=== PATIENT | female | born 1980 | race Caucasian/White ===

== ENCOUNTER 2016-10-11 19:13 | Emergency (ER) | payer OTHER ==
--- NOTE | 2016-10-11 21:30 | ED ORDER SUMMARY ---
..... Patient: MARYANA JEAN-BAPTISTE OrderSheet [facility] VisitID: [id number] [place] [address] 36y, F Registration Date/Time: 10/11/2016 ORDER SHEET Weight: 63.0 kg (stated) Allergies: Demerol, Hdrocodone/APAP, Latex, Robitussin GENERAL ORDERS: Urine Urgent (20:28 10/11/2016 DDavis R.N. per protocol) (Ack 20:28 DDavis R.N.) (20:34 DDavis R.N.) UA-Culture if indicated Urgent (20:28 10/11/2016 DDavis R.N. per protocol) (Ack 20:28 DDavis R.N.) (20:34 DDavis R.N.) CBC w Diff Urgent (20:41 10/11/2016 HBivens A.R.N.P.) (Ack 20:43 CHagerty ER Tail Puller) (21:00 DDavis R.N.) CMP Urgent (20:41 10/11/2016 HBivens A.R.N.P.) (Ack 20:43 CHagerty ER Tail Puller) (21:00 DDavis R.N.) Amylase Urgent (20:41 10/11/2016 HBivens A.R.N.P.) (Ack 20:43 CHagerty ER Tail Puller) (21:00 DDavis R.N.) Lipase Urgent (20:41 10/11/2016 HBivens A.R.N.P.) (Ack 20:43 CHagerty ER Tail Puller) (21:00 DDavis R.N.) MEDICATION ORDERS: K-Dur PO 20 meq (Do not crush or chew, NOW) (21:29 10/11/2016 HBivens A.R.N.P.) (Ack 21:30 DDavis R.N.) (21:41 DDavis R.N.) IV FLUIDS: Toradol IV 30 mg (NOW) (20:41 10/11/2016 HBivens A.R.N.P.) (Ack 20:43 DDavis R.N.) (21:01 DDavis R.N.) IV Saline Lock (20:41 10/11/2016 HBivenalexis Mcgovern.R.N.P.) (Ack 20:43 DDavis R.N.) (21:00 DDavis R.N.) ORDER SHEET NOTES: [Electronically signed by Redd Benavidez R.N. (21:42 10/11/2016)] [Electronically signed by Minnie AlbertsNMargaritaPMargarita (23:15 10/11/2016)] [Electronically locked/signed by Redd Benavidez R.N. (21:42 10/11/2016)]
--- NOTE | 2016-10-11 21:30 | ED NURSING NOTES ---
Clinical Report - Nurses [facility] [address] [place] [address] 10/11/2016 19:16 Patient: [facility]TISTE [id number] TRI[facility] Triage time 19:47. Acuity: LEVEL 3. Chief Complaint: ABDOMINAL PAIN. Alert. No acute distress. --19:54 Sherman Guevara R.N. 19:46 10/11/16. BP: 138/90. HR: 80. RR: 20. O2 saturation: 100%. Temp: 98.8 F. Pain level now 02/04. --19:54 Sherman Guevara R.N. Weight: 63 kg stated. Height/Length: 60 inches Per Patient. BMI: 27.1. --19:52 Sherman Guevara R.N. Medications Aspirin Oral. Topamax Oral. Vitamin D Oral. Vitamins/Minerals Oral. --19:51 Sherman Guevara R.N. Allergies Demerol. Hdrocodone/APAP. Latex. Robitussin. --19:49 Sherman Guevara R.N. History Arrived by private vehicle. Historian: patient. Unaccompanied. This started today. ( loose stool but only one). No nausea, vomiting or diarrhea. Last oral intake by patient was (4 hours ago, a banana). SOCIAL HX: Never smoker. No alcohol use or drug use. FALL RISK ASSESSMENT: Fall risk assessment completed. No fall risk identified. NUTRITIONAL RISK ASSESSMENT: The nutritional risk assessment revealed no deficiencies. FUNCTIONAL ASSESSMENT: Functional assessment: no impairments noted. LEARNING NEEDS ASSESSMENT: The learning needs assessment revealed no barriers. SKIN INTEGRITY ASSESSMENT: Skin integrity risk assessment completed. No skin integrity risk identified. --19:54 Sherman Guevara R.N. Interventions ID band on patient. --19:54 Sherman Guevara R.N. PHYSICAL ASSESSMENT GENERAL / NEURO / PSYCH: Alert. Oriented X 4. Appears in no acute distress. Appears in pain. RESPIRATORY: Respirations not labored. Breath sounds within normal limits. GI / : Abdomen soft and nontender. Bowel sounds within normal limits. SKIN: Skin is warm and dry. --19:55 Sherman Guevara R.N. Ambulatory to room. ( Pt states having upper right abdominal pain since "two hours ago." she states that the pain increases when she leans forward and when she presses on the area. She appears calm and pleasent.). GENERAL / NEURO / PSYCH: Alert. Oriented X 4. Appears in no acute distress. HEENT: Mucous membranes are pink. RESPIRATORY: Respirations not labored. Breath sounds within normal limits. CVS: Normal sinus rhythm noted. Capillary refill less than 2 seconds. GI / : Abdomen soft. Abdominal tenderness in the right upper quadrant. SKIN: Skin is warm and dry. --20:31 Redd Benavidez R.N. NURSING PROGRESS NOTES Patient gowned. Reassurance given. Call light placed in reach. Side rails up x 1. Bed placed in lowest position. --19:55 Sherman Guevara R.N. ( Report received from Sherman Taylor RN). --20:00 Redd Benavidez R.N. ( Urine sample sent to lab). --20:34 Redd Benavidez R.N. 20:55 10/11/2016 Site #1 started via IV antecubital space with an 20g angiocath, with aseptic technique and good blood return; one attempt. Blood drawn: rainbow set. Labeled in the presence of the patient and sent to the lab. Saline lock flushed with 10 mL saline. --21:00 Redd Benavidez R.N. 21:36 10/11/2016 K-DUR (Potassium Chloride Ryann ER) PO Tablets 20 meq given. Allergies verified and confirmed 5 rights. --21:41 Redd Benavidez R.N. 21:37 10/11/2016 Site #1 removed upon discharge. Manual pressure and bandage applied. --21:42 Redd Benavidez R.N. 21:58 10/11/2016 Toradol IVP 30 mg given over 2 minute(s) via site #1. Allergies verified and confirmed 5 rights. IV patency established. IV site checked: no pain, redness, or swelling. IV flushed thoroughly pre- and post-medication administration. IVP given by RN. --21:01 Redd Benavidez R.N. DISPOSITION / DISCHARGE Departure time: 21:40. Condition at departure: stable. No learning barriers present. Discharge instructions provided and reviewed with the patient. Reviewed warnings. Reviewed medication(s) side effects, precautions, dosing and course information. Prescription(s) given to the patient. Treatments reviewed. Reviewed referrals for followup. Patient verbalized understanding. Written instructions provided in Grenadian. The patient was discharged home and accompanied by short haul driver. She left the Emergency Department ambulatory and via private vehicle. Patient driving. --21:41 Redd Benavidez R.N. 21:40 10/11/16. BP: 119/80. HR: 100. RR: 14 (unlabored). O2 saturation: 95% on room air. --21:41 Redd Benavidez R.N. Departure time: 21:42. --21:42 Redd Benavidez R.N. Locked/Released at 10/11/2016 21:42 by Redd Benavidez R.N.
--- NOTE | 2016-10-11 21:30 | ED CLINICAL REPORT ---
Clinical Report - Physicians/Mid Levels [facility] [address] [place] [address] 10/11/2016 19:16 Patient: MARYANA JEAN-BAPTISTE Time Seen: 20:20; initial patient contact, initial documentation, patient care assumed. Arrived- By private vehicle. Historian- patient. HISTORY OF PRESENT ILLNESS Chief Complaint: ABDOMINAL PAIN. 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 It was abrupt in onset and has been constant. At its maximum, severity described as severe. When seen in the E.D., severity described as severe. Modifying factors- (worsened by leaning forward). Not relieved by anything. It is described as "pain" and sharp. No radiation. It is described as located in the right upper quadrant. No nausea, loss of appetite or vomiting. She has had loose stools. This has occurred only once. No additional abdominal pain. No recent travel. Similar symptoms previously: None. Recent medical care: Not recently seen/assessed. REVIEW OF SYSTEMS No constipation, black stools, hematemesis, difficulty with urination or pain with urination. No urinary frequency, bloody stools, fever, chest pain or difficulty breathing. Denies current . All systems otherwise negative, except as recorded above. PAST HISTORY See nurses notes. PAST HISTORY Problems: Vaginitis. UTI - Urinary Tract Infection. Gallstone(s). Back Pain. Lumbar Strain. Hypertension. Lower Extremity Pain. Endometriosis. Bronchitis. Muscle Spasm. Chronic Back Pain. Headache. Nausea. Vaginal Bleeding. Abdominal Pain. Ovarian Cyst. Depression. Additional Surgeries: Appendectomy. Cholecystectomy. Endometriosis. Fatty tumor removed from breast. Tonsillectomy. Uterine ablasion. SOCIAL HISTORY Never smoker. No alcohol use or drug use. No recent travel. Is a local resident. FAMILY HISTORY Negative. ADDITIONAL NOTES The nursing notes have been reviewed with agreement regarding the chief complaint, HPI, ROS, PMH and patient medications and allergies. PHYSICAL EXAM Vital Signs: 10/11/2016 19:46 BP: 138/90. HR: 80. RR: 20. O2 saturation: 100%. Temp: 98.8 F. Have been reviewed as normal and appear to be correct. Appearance: Alert. Oriented X3. No acute distress. Eyes: Pupils equal, round and reactive to light. Eyes normal inspection. Neck: Normal inspection. Neck supple. CVS: Normal heart rate and rhythm. Heart sounds normal. Pulses normal. Respiratory: No respiratory distress. Breath sounds normal. Chest nontender. Abdomen: Soft. Mild tenderness in the right upper quadrant and epigastric area. Positive Basilio's sign. No guarding, rebound tenderness or obturator or psoas sign present. Bowel sounds normal. No organomegaly. No mass. Tenderness present. Back: Normal inspection. Skin: Skin warm and dry. Normal skin color. No rash. Normal skin turgor. Extremities: Extremities exhibit normal ROM. No lower extremity edema. Neuro: Oriented X 3. No motor deficit. No sensory deficit. LABS, X-RAYS, AND EKG Laboratory Tests: UA-Culture if indicated: (SARA: 10/11/2016 20:26) ( [facility] 10/11/2016 20:51) Final results Test Result Flag Units (Reference) URINE COLOR YELLOW URINE APPEARANCE CLEAR URINE GLUCOSE NEGATIVE (NEGATIVE) URINE BILIRUBIN NEGATIVE (NEGATIVE) URINE KETONE NEGATIVE (NEGATIVE) URINE SPECIFIC GRAVITY >= 1.030 (1.010-1.030) URINE PH 5.0 (5.0-8.0) URINE PROTEIN TRACE (NEGATIVE) URINE UROBILINOGEN 0.2 EU/dL (0.2-1.0) URINE NITRITE NEGATIVE (NEGATIVE) URINE BLOOD NEGATIVE (NEGATIVE) URINE LEUK ESTERASE NEGATIVE (NEGATIVE) URINE RBC NONE SEEN rbc/hpf (0-1) URINE WBC 0-1 wbc/hpf (0-1) URINE EPITHELIAL CELLS 1-3 EPI/hpf (0-5) URINE BACTERIA TRACE (<1+) (NONE SEEN) URINE COMMENT CULT NOT INDICATED 1+ MUCUSURINE CULTURES ARE SET-UP BASED ON THE FOLLOWING CRITERIA:POSITIVE NITRITEPOSITIVE LEUKOCYTE ESTERASEGREATER THAN 10 WHITE BLOOD CELLSMODERATE (2+) OR GREATER BACTERIA Urine: (SARA: 10/11/2016 20:26) ( [facility] 10/11/2016 20:42) Final results Test Result Flag Units (Reference) URINE NEGATIVE CBC w Diff: (SARA: 10/11/2016 20:50) ( MsgRcvd 10/11/2016 21:12) Final results Test Result Flag Units (Reference) WHITE BLOOD COUNT 5.8 K/uL (4.5-11.5) RED BLOOD COUNT 4.58 M/uL (4.00-5.20) HEMOGLOBIN 13.3 gm/dL (12.0-16.0) HEMATOCRIT 39.9 % (36.0-46.0) MEAN CELL VOLUME 87 fL (80-100) MEAN CORPUSCULAR HGB 29 pg (26-34) MEAN CORPUSCULAR HGB CONC 34 g/dL (31-37) RED CELL DISTRIBUTION WIDTH 14.3 % (11.6-14.8) PLATELET COUNT 281 K/uL (150-400) NEUTROPHIL % 53.9 % (50-75) LYMPH % 38.0 % (25-40) MONO % 6.1 % (3-14) EOSINOPHIL % 0.6 % (0-4) BASOPHIL % 1.4 % (0-2) CMP: (SARA: 10/11/2016 20:50) ( MsgRcvd 10/11/2016 21:19) Final results Test Result Flag Units (Reference) GLUCOSE 125 H mg/dL (70-110) BUN 15 mg/dL (7-18) CREATININE 0.5 L mg/dL (0.6-1.3) Estimated GFR >60 mL/min Estimated GFR- >60 mL/min Note: Persistent reduction over 3 months in eGFR<60 mL/min/1.73 m2 defines CKD. Patients with eGFR values>=60 mL/min/1.73 m2 may also have CKD if evidence ofpersistent proteinuria. Additional information may be foundat www.kidney.org. SODIUM 139 mmol/L (136-145) POTASSIUM 3.2 L mmol/L (3.5-5.1) CHLORIDE 108 H mmol/L (98-107) CARBON DIOXIDE 26 mmol/L (21-32) CALCIUM 9.2 mg/dL (8.5-10.1) TOTAL PROTEIN 7.7 g/dL (6.4-8.2) ALBUMIN 3.9 g/dL (3.3-5.0) BILIRUBIN, TOTAL 0.4 mg/dL (0.0-1.0) ALKALINE PHOSPHATASE 56 U/L (46-116) AST (SGOT) 18 U/L (15-37) ALT (SGPT) 28 U/L (12-78) LIPASE 168 U/L (73-393) AMYLASE 83 U/L (25-115) . PROGRESS AND PROCEDURES Patient counseled in person regarding the patient's stable condition, test results and diagnosis. 21:24. Differential Diagnosis: I considered gastritis, peptic ulcer disease, gastroesophageal reflux disease, diverticulitis, colon cancer, ulcerative colitis, biliary colic, hepatitis, pancreatitis, common bile duct obstruction, ureterolithiasis, and viral syndrome as a possible cause of abdominal pain in this patient. This is a partial list of diagnoses considered. Above considerations are based on history, physical exam, reassessment and laboratory data. Differential diagnosis was discussed with patient. Disposition: Discharged home in good and improved condition (21:29). Condition: good and stable. CLINICAL IMPRESSION Acute right upper quadrant and epigastric abdominal pain. INSTRUCTIONS Warnings: GENERAL WARNINGS: Return or contact your physician immediately if your condition worsens or changes unexpectedly, if not improving as expected, or if other problems arise. SPECIFICALLY, return if you develop pain in the abdomen, fever, the inability to keep fluids down, blood in vomitus, blood in diarrhea, fainting or lightheadedness. Prescription Medications: Zofran 4 mg: Take 1 orally every six hours as needed for nausea/vomiting. Dispense ten (10). No refills. Substitution is permissible. Pepcid 20 mg tablets: Take 1 orally every 12 hours. Dispense thirty (30). No refills. Substitution is permissible. Ultram 50 mg tablets: take 1-2 orally every 6 hours as needed for pain. Dispense twenty (20). No refills. Substitution is permissible. Follow-up: Follow up with your doctor in about two days as needed. Call for an appointment. Summary of care provided to patient. Understanding of the discharge instructions verbalized by patient. (Electronically signed by Minnie Alberts A.R.N.P. 10/11/2016 23:15)
--- NOTE | 2016-10-11 21:30 | ED NURSING NOTES ---
Clinical Report - Nurses [facility] [address] [place] [place] [address] 10/11/2016 19:16 [facility]: [facility]ISTE [id number] TRI[facility] Triage time 19:47. Acuity: LEVEL 3. Chief Complaint: ABDOMINAL PAIN. Alert. No acute distress. --19:54 Sherman Guevara R.N. 19:46 10/11/16. BP: 138/90. HR: 80. RR: 20. O2 saturation: 100%. Temp: 98.8 F. Pain level now 02/04. --19:54 Sherman Guevara R.N. Weight: 63 kg stated. Height/Length: 60 inches Per Patient. BMI: 27.1. --19:52 Sherman Guevara R.N. Medications Aspirin Oral. Topamax Oral. Vitamin D Oral. Vitamins/Minerals Oral. --19:51 Sherman Guevara R.N. Allergies Demerol. Hdrocodone/APAP. Latex. Robitussin. --19:49 Sherman Guevara R.N. History Arrived by private vehicle. Historian: patient. Unaccompanied. This started today. ( loose stool but only one). No nausea, vomiting or diarrhea. Last oral intake by patient was (4 hours ago, a banana). SOCIAL HX: Never smoker. No alcohol use or drug use. FALL RISK ASSESSMENT: Fall risk assessment completed. No fall risk identified. NUTRITIONAL RISK ASSESSMENT: The nutritional risk assessment revealed no deficiencies. FUNCTIONAL ASSESSMENT: Functional assessment: no impairments noted. LEARNING NEEDS ASSESSMENT: The learning needs assessment revealed no barriers. SKIN INTEGRITY ASSESSMENT: Skin integrity risk assessment completed. No skin integrity risk identified. --19:54 Sherman Guevara R.N. Interventions ID band on patient. --19:54 Sherman Guevara R.N. PHYSICAL ASSESSMENT GENERAL / NEURO / PSYCH: Alert. Oriented X 4. Appears in no acute distress. Appears in pain. RESPIRATORY: Respirations not labored. Breath sounds within normal limits. GI / : Abdomen soft and nontender. Bowel sounds within normal limits. SKIN: Skin is warm and dry. --19:55 Sherman Guevara R.N. Ambulatory to room. ( Pt states having upper right abdominal pain since "two hours ago." she states that the pain increases when she leans forward and when she presses on the area. She appears calm and pleasent.). GENERAL / NEURO / PSYCH: Alert. Oriented X 4. Appears in no acute distress. HEENT: Mucous membranes are pink. RESPIRATORY: Respirations not labored. Breath sounds within normal limits. CVS: Normal sinus rhythm noted. Capillary refill less than 2 seconds. GI / : Abdomen soft. Abdominal tenderness in the right upper quadrant. SKIN: Skin is warm and dry. --20:31 Redd Benavidez R.N. NURSING PROGRESS NOTES Patient gowned. Reassurance given. Call light placed in reach. Side rails up x 1. Bed placed in lowest position. --19:55 Sherman Guevara R.N. ( Report received from Sherman Taylor RN). --20:00 Redd Benavidez R.N. ( Urine sample sent to lab). --20:34 Redd Benavidez R.N. 20:55 10/11/2016 Site #1 started via IV antecubital space with an 20g angiocath, with aseptic technique and good blood return; one attempt. Blood drawn: rainbow set. Labeled in the presence of the patient and sent to the lab. Saline lock flushed with 10 mL saline. --21:00 Redd Benavidez R.N. 21:36 10/11/2016 K-DUR (Potassium Chloride Ryann ER) PO Tablets 20 meq given. Allergies verified and confirmed 5 rights. --21:41 Redd Benavidez R.N. 21:37 10/11/2016 Site #1 removed upon discharge. Manual pressure and bandage applied. --21:42 Redd Benavidez R.N. 21:58 10/11/2016 Toradol IVP 30 mg given over 2 minute(s) via site #1. Allergies verified and confirmed 5 rights. IV patency established. IV site checked: no pain, redness, or swelling. IV flushed thoroughly pre- and post-medication administration. IVP given by RN. --21:01 Redd Benavidez R.N. DISPOSITION / DISCHARGE Departure time: 21:40. Condition at departure: stable. No learning barriers present. Discharge instructions provided and reviewed with the patient. Reviewed warnings. Reviewed medication(s) side effects, precautions, dosing and course information. Prescription(s) given to the patient. Treatments reviewed. Reviewed referrals for followup. Patient verbalized understanding. Written instructions provided in Nicaraguan. The patient was discharged home and accompanied by sustainment logistics analyst. She left the Emergency Department ambulatory and via private vehicle. Patient driving. --21:41 Redd Benavidez R.N. 21:40 10/11/16. BP: 119/80. HR: 100. RR: 14 (unlabored). O2 saturation: 95% on room air. --21:41 Redd Benavidez R.N. Departure time: 21:42. --21:42 Redd Benavidez R.N. Locked/Released at 10/11/2016 21:42 by Redd Benavidez R.N.
--- NOTE | 2016-10-11 21:30 | ED ORDER SUMMARY ---
..... Patient: MARYANA JEAN-BAPTISTE OrderSheet [facility] VisitID: [id number] [place] [address] 36y, F Registration Date/Time: 10/11/2016 ORDER SHEET Weight: 63.0 kg (stated) Allergies: Demerol, Hdrocodone/APAP, Latex, Robitussin GENERAL ORDERS: Urine Urgent (20:28 10/11/2016 DDavis R.N. per protocol) (Ack 20:28 DDavis R.N.) (20:34 DDavis R.N.) UA-Culture if indicated Urgent (20:28 10/11/2016 DDavis R.N. per protocol) (Ack 20:28 DDavis R.N.) (20:34 DDavis R.N.) CBC w Diff Urgent (20:41 10/11/2016 HBivens A.R.N.P.) (Ack 20:43 CHagerty ER Padder) (21:00 DDavis R.N.) CMP Urgent (20:41 10/11/2016 HBivens A.R.N.P.) (Ack 20:43 CHagerty ER Padder) (21:00 DDavis R.N.) Amylase Urgent (20:41 10/11/2016 HBivens A.R.N.P.) (Ack 20:43 CHagerty ER Padder) (21:00 DDavis R.N.) Lipase Urgent (20:41 10/11/2016 HBivens A.R.N.P.) (Ack 20:43 CHagerty ER Padder) (21:00 DDavis R.N.) MEDICATION ORDERS: K-Dur PO 20 meq (Do not crush or chew, NOW) (21:29 10/11/2016 HBivens A.R.N.P.) (Ack 21:30 DDavis R.N.) (21:41 DDavis R.N.) IV FLUIDS: Toradol IV 30 mg (NOW) (20:41 10/11/2016 HBivens A.R.N.P.) (Ack 20:43 DDavis R.N.) (21:01 DDavis R.N.) IV Saline Lock (20:41 10/11/2016 HBivenalexis Mcgovern.R.N.P.) (Ack 20:43 DDavis R.N.) (21:00 DDavis R.N.) ORDER SHEET NOTES: [Electronically signed by Redd Benavidez R.N. (21:42 10/11/2016)] [Electronically signed by Minnie AlbertsNMargaritaPMargarita (23:15 10/11/2016)] [Electronically locked/signed by Redd Benavidez R.N. (21:42 10/11/2016)]
--- NOTE | 2016-10-11 23:16 | ED MAR SUMMARY ---
..... Medication Administration Record [facility] [address] [place] [address] Patient: MARYANA JEAN-BAPTISTE Visit ID: [id number] 36y, F Weight: 63.0 kg Height/Length: 60 in BMI: 27.1 ALLERGIES: Demerol, Hdrocodone/APAP, Latex, Robitussin Given 21:36 10/11/2016 Redd Benavidez R.N. Medication Administered: K-DUR [PO] (POTASSIUM CHLORIDE NANCY ER), Dose: 20 meq Tablets PO. Medication Ordered: K-Dur PO 20 meq (Do not crush or chew, NOW). Given 21:58 10/11/2016 Redd Benavidez R.N. Medication Administered: TORADOL [IVP], Dose: 30 mg IVP over 2 minute(s), Site: #1. Medication Ordered: Toradol IV 30 mg (NOW).
--- NOTE | 2016-10-11 23:16 | ED MED RECONCILIATION SUMMARY ---
Patient: MARYANA JEAN-BAPTISTE Medication Reconciliation Report [facility] VisitID: [id number] [place] [address] 36y, F Registration Date/Time: 10/11/2016 Weight: 63.0 kg Height/Length: 60 in. BMI: 27.1 ALLERGIES: Demerol, Hdrocodone/APAP, Latex, Robitussin The patient's Home Medications are listed below: THE FOLLOWING MEDICATIONS NEED TO BE RECONCILED: Aspirin Oral Topamax Oral Vitamin D Oral Vitamins/Minerals Oral The source(s) of the original Home Medication information: Not obtained. The following Medications were given to the patient in the Emergency Department: Toradol [IVP] IVP 30 mg, administered: 10/11/2016 9:58:00 PM K-DUR [PO] PO 20 meq, administered: 10/11/2016 9:36:00 PM The following Medications were prescribed to the patient: Zofran 4 mg: Take 1 orally every six hours as needed for nausea/vomiting. Dispense ten (10). No refills. Substitution is permissible. -- Minnie Alberts, Shaniqua.R.N.P. Pepcid 20 mg tablets: Take 1 orally every 12 hours. Dispense thirty (30). No refills. Substitution is permissible. -- Minnie Alberts A.Kael.N.P. Ultram 50 mg tablets: take 1-2 orally every 6 hours as needed for pain. Dispense twenty (20). No refills. Substitution is permissible. -- Minnie Alberts A.R.N.P.
--- NOTE | 2016-10-11 23:16 | ED MED RECONCILIATION SUMMARY ---
Patient: MARYANA JEAN-BAPTISTE Medication Reconciliation Report [facility] VisitID: [id number] [place] [address] 36y, F Registration Date/Time: 10/11/2016 Weight: 63.0 kg Height/Length: 60 in. BMI: 27.1 ALLERGIES: Demerol, Hdrocodone/APAP, Latex, Robitussin The patient's Home Medications are listed below: THE FOLLOWING MEDICATIONS NEED TO BE RECONCILED: Aspirin Oral Topamax Oral Vitamin D Oral Vitamins/Minerals Oral The source(s) of the original Home Medication information: Not obtained. The following Medications were given to the patient in the Emergency Department: Toradol [IVP] IVP 30 mg, administered: 10/11/2016 9:58:00 PM K-DUR [PO] PO 20 meq, administered: 10/11/2016 9:36:00 PM The following Medications were prescribed to the patient: Zofran 4 mg: Take 1 orally every six hours as needed for nausea/vomiting. Dispense ten (10). No refills. Substitution is permissible. -- Minnie Alberts, Shaniqua.R.N.P. Pepcid 20 mg tablets: Take 1 orally every 12 hours. Dispense thirty (30). No refills. Substitution is permissible. -- Minnie Alberts A.Kael.N.P. Ultram 50 mg tablets: take 1-2 orally every 6 hours as needed for pain. Dispense twenty (20). No refills. Substitution is permissible. -- Minnie Alberts A.R.N.P.
--- NOTE | 2016-10-11 23:16 | ED MAR SUMMARY ---
..... Medication Administration Record [facility] [address] [place] [address] Patient: MARYANA JEAN-BAPTISTE Visit ID: [id number] 36y, F Weight: 63.0 kg Height/Length: 60 in BMI: 27.1 ALLERGIES: Demerol, Hdrocodone/APAP, Latex, Robitussin Given 21:36 10/11/2016 Redd Benavidez R.N. Medication Administered: K-DUR [PO] (POTASSIUM CHLORIDE NANCY ER), Dose: 20 meq Tablets PO. Medication Ordered: K-Dur PO 20 meq (Do not crush or chew, NOW). Given 21:58 10/11/2016 Redd Benavidez R.N. Medication Administered: TORADOL [IVP], Dose: 30 mg IVP over 2 minute(s), Site: #1. Medication Ordered: Toradol IV 30 mg (NOW).
--- NOTE | 2016-10-11 23:16 | ED DISCHARGE INSTRUCTIONS ---
Patient: MARYANA JEAN-BAPTISTE General Instructions [facility] VisitID: [id number] [place] [address] 36y, F Registration Date/Time: 10/11/2016 Acute right upper quadrant and epigastric abdominal pain. INSTRUCTIONS Warnings: GENERAL WARNINGS: Return or contact your physician immediately if your condition worsens or changes unexpectedly, if not improving as expected, or if other problems arise. SPECIFICALLY, return if you develop pain in the abdomen, fever, the inability to keep fluids down, blood in vomitus, blood in diarrhea, fainting or lightheadedness. Prescription Medications: Zofran 4 mg: Take 1 orally every six hours as needed for nausea/vomiting. Dispense ten (10). No refills. Substitution is permissible. Pepcid 20 mg tablets: Take 1 orally every 12 hours. Dispense thirty (30). No refills. Substitution is permissible. Ultram 50 mg tablets: take 1-2 orally every 6 hours as needed for pain. Dispense twenty (20). No refills. Substitution is permissible. Follow-up: Follow up with your doctor in about two days as needed. Call for an appointment. Summary of care provided to patient. Understanding of the discharge instructions verbalized by patient. ADDITIONAL INFORMATION Abdominal Pain, Unknown Cause (Female) The exact cause of your abdominal (stomach) pain is not certain. This does not mean that this is something to worry about, or the right tests were not done. Everyone likes to know the exact cause of the problem, but sometimes with abdominal pain, there is no clear-cut cause, and this could be a good thing. The good news is that your symptoms can be treated, and you will feel better. Your condition does not seem serious now; however, sometimes the signs of a serious problem may take more time to appear. For this reason,it is important for you to watch for any new symptoms, problems,or worsening of your condition. Over the next few days, the abdominal pain may come and go, or be continuous. Other common symptoms can include nausea and vomiting. Sometimes it can be difficult to tell if you feel nauseous, you may just feel bad and not associate that feeling with nausea. Constipation, diarrhea, and a fever may go along with the pain. The pain may continue even if treated correctly over the following days. Depending on how things go, sometimes the cause can become clear and may require further or different treatment. Additional evaluations, medications, or tests may be needed. Home care Your health care provider may prescribe medications for pain, symptoms, or an infection. Follow the health care provider's instructions for taking these medications. General care Rest until your next exam. No strenuous activities. Try to find positions that ease discomfort. A small pillow placed on the abdomen may help relieve pain. Something warm on your abdomen (such as a heating pad) may help, but be careful not to burn yourself. Diet Do not force yourself to eat, especially if having cramps, vomiting, or diarrhea. Water is important so you do not get dehydrated. Soup may also be good. Sports drinks may also help, especially if they are not too acidic. Make sure you don't drink sugary drinks as this can make things worse. Take liquids in small amounts. Do not guzzle them. Caffeine sometimes makes the pain and cramping worse. Avoid dairy products if you have vomiting or diarrhea. Don't eat large amounts at a time. Wait a few minutes between bites. Eat a diet low in fiber (called a low-residue diet). Foods allowed include refined breads, white rice, fruit and vegetable juices without pulp, tender meats. These foods will pass more easily through the intestine. Avoid whole-grain foods, whole fruits and vegetables, meats, seeds and nuts, fried or fatty foods, dairy, alcohol and spicy foods until your symptoms go away. Follow-up care Follow up with your health care provider as instructed, or if your pain does not begin to improve in the next 24 hours. When to seek medical care Seek prompt medical care if any of the following occur: Pain gets worse or moves to the right lower abdomen New or worsening vomiting or diarrhea Swelling of the abdomen Unable to pass stool for more than three days Fever of 100.4F (38C) or higher, or as directed by your healthcare provider. Blood in vomit or bowel movements (dark red or black color) Jaundice (yellow color of eyes and skin) Weakness, dizziness Chest, arm, back, neck or jaw pain Unexpected vaginal bleeding or missed period Call 911 Call emergency services if any of the following occur: Trouble breathing Confusion Fainting or loss of consciousness Rapid heart rate Seizure Ondansetron Oral disintegrating tablet What is this medicine? ONDANSETRON (on WOLF se li) is used to treat nausea and vomiting caused by chemotherapy. It is also used to prevent or treat nausea and vomiting after surgery. How should I use this medicine? These tablets are made to dissolve in the mouth. Do not try to push the tablet through the foil backing. With dry hands, peel away the foil backing and gently remove the tablet. Place the tablet in the mouth and allow it to dissolve, then swallow. While you may take these tablets with water, it is not necessary to do so. Talk to your charge nurse regarding the use of this medicine in children. Special care may be needed. What side effects may I notice from receiving this medicine? Side effects that you should report to your doctor or health anesthesiologist and critical care as soon as possible: allergic reactions like skin rash, itching or hives, swelling of the face, lips, or tongue breathing problems dizziness fast or irregular heartbeat feeling faint or lightheaded, falls fever and chills swelling of the hands and feet tightness in the chest Side effects that usually do not require medical attention (report to your doctor or health anesthesiologist and critical care if they continue or are bothersome): constipation or diarrhea headache What may interact with this medicine? Do not take this medicine with any of the following medications: -apomorphine -cisapride -dofetilide -dronedarone -pimozide -thioridazine -ziprasidone This medicine may also interact with the following medications: -carbamazepine -phenytoin -rifampicin -tramadol -other medicines that prolong the QT interval (cause an abnormal heart rhythm) What if I miss a dose? If you miss a dose, take it as soon as you can. If it is almost time for your next dose, take only that dose. Do not take double or extra doses. Where should I keep my medicine? Keep out of the reach of children. Store between 2 and 30 degrees C (36 and 86 degrees F). Throw away any unused medicine after the expiration date. What should I tell my health care provider before I take this medicine? They need to know if you have any of these conditions: heart disease history of irregular heartbeat liver disease low levels of magnesium or potassium in the blood an unusual or allergic reaction to ondansetron, granisetron, other medicines, foods, dyes, or preservatives or trying to get breast-feeding What should I watch for while using this medicine? Check with your doctor or health anesthesiologist and critical care as soon as you can if you have any sign of an allergic reaction. Famotidine Oral tablet What is this medicine? FAMOTIDINE (adam guzman) is a type of antihistamine that blocks the release of stomach acid. It is used to treat stomach or intestinal ulcers. It can also relieve heartburn from acid reflux. How should I use this medicine? Take this medicine by mouth with a glass of water. Follow the directions on the prescription label. If you only take this medicine once a day, take it at bedtime. Take your doses at regular intervals. Do not take your medicine more often than directed. Talk to your charge nurse regarding the use of this medicine in children. Special care may be needed. What side effects may I notice from receiving this medicine? Side effects that you should report to your doctor or health anesthesiologist and critical care as soon as possible: agitation, nervousness confusion hallucinations skin rash, itching Side effects that usually do not require medical attention (report to your doctor or health anesthesiologist and critical care if they continue or are bothersome): constipation diarrhea dizziness headache What may interact with this medicine? delavirdine itraconazole ketoconazole What if I miss a dose? If you miss a dose, take it as soon as you can. If it is almost time for your next dose, take only that dose. Do not take double or extra doses. Where should I keep my medicine? Keep out of the reach of children. Store at room temperature between 15 and 30 degrees C (59 and 86 degrees F). Do not freeze. Throw away any unused medicine after the expiration date. What should I tell my health care provider before I take this medicine? They need to know if you have any of these conditions: kidney or liver disease trouble swallowing an unusual or allergic reaction to famotidine, other medicines, foods, dyes, or preservatives or trying to get breast-feeding What should I watch for while using this medicine? Tell your doctor or health anesthesiologist and critical care if your condition does not start to get better or if it gets worse. Finish the full course of tablets prescribed, even if you feel better. Do not take with aspirin, ibuprofen or other antiinflammatory medicines. These can make your condition worse. Do not smoke cigarettes or drink alcohol. These cause irritation in your stomach and can increase the time it will take for ulcers to heal. If you get black, tarry stools or vomit up what looks like coffee grounds, call your doctor or health anesthesiologist and critical care at once. You may have a bleeding ulcer. Tramadol Hydrochloride Oral tablet What is this medicine? TRAMADOL (TRA ma dole) is a pain reliever. It is used to treat moderate to severe pain in adults. How should I use this medicine? Take this medicine by mouth with a full glass of water. Follow the directions on the prescription label. If the medicine upsets your stomach, take it with food or milk. Do not take more medicine than you are told to take. Talk to your charge nurse regarding the use of this medicine in children. Special care may be needed. What side effects may I notice from receiving this medicine? Side effects that you should report to your doctor or health anesthesiologist and critical care as soon as possible: allergic reactions like skin rash, itching or hives, swelling of the face, lips, or tongue breathing difficulties, wheezing confusion itching light headedness or fainting spells redness, blistering, peeling or loosening of the skin, including inside the mouth seizures Side effects that usually do not require medical attention (report to your doctor or health anesthesiologist and critical care if they continue or are bothersome): constipation dizziness drowsiness headache nausea, vomiting What may interact with this medicine? Do not take this medicine with any of the following medications: MAOIs like Carbex, Eldepryl, Marplan, Nardil, and Parnate This medicine may also interact with the following medications: alcohol or medicines that contain alcohol antihistamines benzodiazepines bupropion carbamazepine or oxcarbazepine clozapine cyclobenzaprine digoxin furazolidone linezolid medicines for depression, anxiety, or psychotic disturbances medicines for migraine headache like almotriptan, eletriptan, frovatriptan, naratriptan, rizatriptan, sumatriptan, zolmitriptan medicines for pain like pentazocine, buprenorphine, butorphanol, meperidine, nalbuphine, and propoxyphene medicines for sleep muscle relaxants naltrexone phenobarbital phenothiazines like perphenazine, thioridazine, chlorpromazine, mesoridazine, fluphenazine, prochlorperazine, promazine, and trifluoperazine procarbazine warfarin What if I miss a dose? If you miss a dose, take it as soon as you can. If it is almost time for your next dose, take only that dose. Do not take double or extra doses. Where should I keep my medicine? Keep out of the reach of children. Store at room temperature between 15 and 30 degrees C (59 and 86 degrees F). Keep container tightly closed. Throw away any unused medicine after the expiration date. What should I tell my health care provider before I take this medicine? They need to know if you have any of these conditions: brain tumor depression drug abuse or addiction head injury if you frequently drink alcohol containing drinks kidney disease or trouble passing urine liver disease lung disease, asthma, or breathing problems seizures or epilepsy suicidal thoughts, plans, or attempt; a previous suicide attempt by you or a family member an unusual or allergic reaction to tramadol, codeine, other medicines, foods, dyes, or preservatives or trying to get breast-feeding What should I watch for while using this medicine? Tell your doctor or health anesthesiologist and critical care if your pain does not go away, if it gets worse, or if you have new or a different type of pain. You may develop tolerance to the medicine. Tolerance means that you will need a higher dose of the medicine for pain relief. Tolerance is normal and is expected if you take this medicine for a long time. Do not suddenly stop taking your medicine because you may develop a severe reaction. Your body becomes used to the medicine. This does NOT mean you are addicted. Addiction is a behavior related to getting and using a drug for a non-medical reason. If you have pain, you have a medical reason to take pain medicine. Your doctor will tell you how much medicine to take. If your doctor wants you to stop the medicine, the dose will be slowly lowered over time to avoid any side effects. You may get drowsy or dizzy. Do not drive, use machinery, or do anything that needs mental alertness until you know how this medicine affects you. Do not stand or sit up quickly, especially if you are an older patient. This reduces the risk of dizzy or fainting spells. Alcohol can increase or decrease the effects of this medicine. Avoid alcoholic drinks. You may have constipation. Try to have a bowel movement at least every 2 to 3 days. If you do not have a bowel movement for 3 days, call your doctor or health anesthesiologist and critical care. Your mouth may get dry. Chewing sugarless gum or sucking hard candy, and drinking plenty of water may help. Contact your doctor if the problem does not go away or is severe. You have been given the following additional information: Abdominal Pain, Unknown Cause, (Female) Ondansetron Oral disintegrating tablet Famotidine Oral tablet Tramadol Hydrochloride Oral tablet (Electronically signed by Minnie Alberts A.R.N.P. 10/11/2016 23:15)
== END 2016-10-11 21:42 | disposition home or self-care (01) ==
LOC: ED SRH 19:13
DX: R10.11 Right upper quadrant pain (principal); R10.13 Epigastric pain
CPT/HCPCS: 90004; 90100; 92235; 92530; 93070; 95059

== ENCOUNTER 2017-01-04 18:03 | Emergency (ER) | payer OTHER ==
--- NOTE | 2017-01-04 18:51 | ED ORDER SUMMARY ---
..... Patient: MARYANA JEAN-BAPTISTE OrderSheet [facility] VisitID: [id number] [address] [place] [address] 36y, F Registration Date/Time: 01/04/2017 ORDER SHEET Weight: 63.9 kg (stated) Allergies: Demerol, Latex, Robitussin, Vicodin GENERAL ORDERS: Post-op Shoe (18:49 01/04/2017 EKrosalinda P.A.-C) (18:53 JBoardley R.N.) MEDICATION ORDERS: Motrin PO 800 mg (NOW) (18:50 01/04/2017 Deandre P.A.-C) (Ack 18:50 JBoardley R.N.) (18:53 JBoardley R.N.) IV FLUIDS: ORDER SHEET NOTES: [Electronically signed by Mario Shields R.N. (18:59 01/04/2017)] [Electronically signed by Poonam QuigleyAMargarita-C (20:24 01/04/2017)] [Electronically locked/signed by Mario Shields R.N. (18:59 01/04/2017)]
--- NOTE | 2017-01-04 18:51 | ED CLINICAL REPORT ---
Clinical Report - Physicians/Mid Levels [facility] [address] [place] [address] 01/04/2017 18:04 Patient: MARYANA JEAN-BAPTISTE Time Seen: 19:11 Jan 04 2017. Arrived- By private vehicle. Historian- patient. HISTORY OF PRESENT ILLNESS Chief Complaint: (left foot pain). The injury happened yesterday. This was not a twisting injury or caused by a direct blow. Occurred at home. Patient is experiencing mild pain. Patient denies injury to the head or neck. (Pt reports pain on weight bearing to left foot, no history of trauma. No history of similar. No rash. No h/o gout/ pseudogout. Walks/ on her feet for work. No radiation of pain. Pain mildly improved with Tylenol). REVIEW OF SYSTEMS The patient complains of pain on weight bearing. No skin laceration. All systems otherwise negative, except as recorded above. PAST HISTORY See nurses notes. The patient has not had a prior injury to the same area. SOCIAL HISTORY Never smoker. No alcohol use or drug use. ADDITIONAL NOTES The nursing notes have been reviewed. PHYSICAL EXAM Vital Signs: 01/04/2017 18:36 BP: 124/82. HR: 88. RR: 16. O2 saturation: 99%. Temp: 97.9 F. Pain level now: 8/10. Appearance: Alert. No acute distress. Head: Head atraumatic. Neck: Normal inspection. CVS: Normal heart rate and rhythm. Heart sounds normal. Respiratory: No respiratory distress. Breath sounds normal. No chest wall injury. Skin: Skin intact. Skin warm. Extremities: Foot/ankle soft-tissue tenderness. Left medial ankle. No tenderness. Left anterior ankle. No tenderness or laceration. Left posterior ankle. No tenderness or swelling. Left lateral ankle. Base of the left 5th metatarsal. No tenderness or swelling. Left foot, plantar aspect. (plantar surface tenderness on palpation just distal to calcaneous). Left heel: mild tenderness. Neurovascular intact distally. (distal plantar tenderness). No erythema, swelling, laceration, puncture wound or foreign body. No deformity. No decreased plantar flexion. No signs of infection present in the feet or ankles. No ankle injury. Neuro, Vascular and Tendons: Vascular status intact. Motor intact. No tendon injury seen. Gait: Limping gait. Neuro: Oriented X 3. PROGRESS AND PROCEDURES Course of Care: Pt in the ER with signs of plantar surface tenderness, full rom at ankle. No rash. NO signs or history of injury. Pt with no ankle instability. Ambulatory. No signs of infectious origin. NO signs of laceration/ ecchymosis. NO calcaneous tenderness, no achilles tenderness. Patient is stable. Physical exam findings are improved. Symptoms better. Patient/family counseled. Disposition: Discharged. Condition: good. CLINICAL IMPRESSION Left plantar fasciitis INSTRUCTIONS Apply ice. Elevate affected areas above chest level. You may walk and bear weight as tolerated. Do not work for three days (then light duty for 3 days, primarily sitting). Prescription Medications: Motrin 800 mg tablets: take 1 tablet orally every 8 hours for 5 days, as needed for pain or swelling. Dispense fifteen (15). No refill. Understanding of the discharge instructions verbalized by patient. Follow-up with: Artemio Cuellar DPM, Podiatry, , [address], [facility] [address] Follow up. Call for the next available appointment. (Electronically signed by Poonam Quigley P.A.-C 01/04/2017 20:24)
--- NOTE | 2017-01-04 18:51 | ED ORDER SUMMARY ---
..... Patient: MARYANA JEAN-BAPTISTE OrderSheet [facility] VisitID: [id number] [address] [place] [address] 36y, F Registration Date/Time: 01/04/2017 ORDER SHEET Weight: 63.9 kg (stated) Allergies: Demerol, Latex, Robitussin, Vicodin GENERAL ORDERS: Post-op Shoe (18:49 01/04/2017 EKrosalinda P.A.-C) (18:53 JBoardley R.N.) MEDICATION ORDERS: Motrin PO 800 mg (NOW) (18:50 01/04/2017 Deandre P.A.-C) (Ack 18:50 JBoardley R.N.) (18:53 JBoardley R.N.) IV FLUIDS: ORDER SHEET NOTES: [Electronically signed by Mario Shields R.N. (18:59 01/04/2017)] [Electronically signed by Poonam QuigleyAMargarita-C (20:24 01/04/2017)] [Electronically locked/signed by Mario Shields R.N. (18:59 01/04/2017)]
--- NOTE | 2017-01-04 18:51 | ED NURSING NOTES ---
Clinical Report - Nurses [facility] [address] [place] [place] [address] 01/04/2017 18:04 Patient: MARYANA JEAN-BAPTISTE TRIAGE Triage time 18:36. Acuity: LEVEL 4. Chief Complaint: Location of symptoms- left ankle and left foot. 18:37 01/04/17. 18:37 01/04/17. Alert. No acute distress. SEPSIS SCREEN: Sepsis Screen. Negative (no infection suspected/documented). CHASIDY COMA SCORE: [place] Coma Scale: 15- eyes open spontaneously (4); best verbal response- oriented x 4 (5); best motor response- obeys commands (6). --18:41 Mario Shields R.N. 18:36 01/04/17. BP: 124/82. HR: 88. RR: 16. O2 saturation: 99% on room air. Temp: 97.9 F (oral). Pain level now: 02/04. --18:41 Mario Shields R.N. Weight: 63.9 kg stated. Height/Length: 64 inches Per Patient. BMI: 24.2. --18:36 Mario Shields R.N. Medications Aspirin Oral. Topamax Oral. Vitamin D Oral. Vitamins/Minerals Oral. --18:38 Mario Shields R.N. Medication/allergy information source: the patient. --18:41 Mario Shields R.N. Allergies Demerol. Latex. Robitussin. --18:38 Mario Shields R.N. Vicodin. --18:38 Mario Shields R.N. History Arrived by private vehicle. Historian: patient. Accompanied by family. Primary physician (ANGELA LARRY). 18:37 01/04/17. An injury may have occurred. Occurred at home. She has had trouble walking. 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 PAST MEDICAL HX: Tetanus status: up-to-date. Immunizations: up-to-date. Last normal menstrual period- November 2011-Due to uterine ablation. Denies current . SOCIAL HX: Never smoker. No alcohol use or drug use. No infectious disease exposure. ABUSE ASSESSMENT: No report of abuse. FALL RISK ASSESSMENT: Fall risk assessment completed. No fall risk identified. NUTRITIONAL RISK ASSESSMENT: The nutritional risk assessment revealed no deficiencies. FUNCTIONAL ASSESSMENT: Functional assessment: no impairments noted. LEARNING NEEDS ASSESSMENT: The learning needs assessment revealed no barriers. SKIN INTEGRITY ASSESSMENT: Skin integrity risk assessment completed. No skin integrity risk identified. --18:41 Mario Shields R.N. PROBLEMS: Migraine Headache. Vaginitis. UTI - Urinary Tract Infection. Gallstone(s). Back Pain. Lumbar Strain. Hypertension. Lower Extremity Pain. Endometriosis. Bronchitis. Muscle Spasm. Chronic Back Pain. Headache. Nausea. Vaginal Bleeding. Abdominal Pain. Ovarian Cyst. Depression. Sprain. Tetanus Status. Immunizations. --18:38 Mario Shields R.N. ADDITIONAL SURGERIES: Appendectomy. Cholecystectomy. Endometriosis. Fatty tumor removed from breast. Tonsillectomy. Uterine ablasion. --18:38 Mario Shields R.N. Assessment 18:37 01/04/17. --18:41 Mario Shields R.N. Interventions 18:37 01/04/17. 18:37 01/04/17. ID and allergy band on patient. To treatment room. --18:41 Mario Shields R.N. PHYSICAL ASSESSMENT 18:39 01/04/17. Ambulatory to room. GENERAL / NEURO / PSYCH: Oriented X 4. Alert. Appears in no acute distress. EXTREMITIES: No lower extremity edema. Left ankle: tenderness. Left foot: tenderness. SKIN: Skin is warm and dry. --18:39 Mario Shields R.N. NURSING PROGRESS NOTES 18:40 01/04/17. Two patient identifiers checked. Call light placed in reach. Side rails up x 2. Bed placed in lowest position. Brakes of bed on. Patient ready for evaluation- chart flagged and notification provided. --18:40 Mario Shields R.N. 18:40 01/04/17. The plan of care for this patient has been created. Cold pack applied. Extremity elevated. Reassurance given. --18:40 Mario Shields R.N. 18:53 01/04/2017 Motrin PO 800 mg given. Allergies verified and confirmed 5 rights. --18:53 Mario Shields R.N. ( post op shoe to left foot). --18:56 Ginette Ham ER Liza1. DISPOSITION / DISCHARGE 18:57 01/04/17. Condition at departure: improved. The goals identified in the patient's plan of care were met. No learning barriers present. Discharge instructions provided and reviewed with the patient and family. Reviewed warnings. Reviewed medication(s). Treatments reviewed. Patient and family verbalized understanding. Written instructions provided in Bulgarian. The patient was discharged by the physician assistant center manager. She was discharged home and accompanied by family. She left the Emergency Department ambulatory and via private vehicle. Family member driving. FALL RISK ASSESSMENT: Fall risk assessment completed. No fall risk identified. --18:57 Mario Shields R.N. 18:36 01/04/17. BP: 124/82. HR: 88. RR: 16. O2 saturation: 99% on room air. Temp: 97.9 F (oral). Pain level now: 02/04. --18:57 Mario Shields R.N. 18:57 01/04/17. Departure time: 18:57 Jan 04 2017. --18:57 Mario Shields R.N. Locked/Released at 01/04/2017 18:59 by Mario Shields R.N.
--- NOTE | 2017-01-04 18:51 | ED NURSING NOTES ---
Clinical Report - Nurses [facility] [address] [place] [place] [address] 01/04/2017 18:04 Patient: MARYANA JEAN-BAPTISTE TRIAGE Triage time 18:36. Acuity: LEVEL 4. Chief Complaint: Location of symptoms- left ankle and left foot. 18:37 01/04/17. 18:37 01/04/17. Alert. No acute distress. SEPSIS SCREEN: Sepsis Screen. Negative (no infection suspected/documented). CHASIDY COMA SCORE: [place] Coma Scale: 15- eyes open spontaneously (4); best verbal response- oriented x 4 (5); best motor response- obeys commands (6). --18:41 Mario Shields R.N. 18:36 01/04/17. BP: 124/82. HR: 88. RR: 16. O2 saturation: 99% on room air. Temp: 97.9 F (oral). Pain level now: 02/04. --18:41 Mario Shields R.N. Weight: 63.9 kg stated. Height/Length: 64 inches Per Patient. BMI: 24.2. --18:36 Mario Shields R.N. Medications Aspirin Oral. Topamax Oral. Vitamin D Oral. Vitamins/Minerals Oral. --18:38 Mario Shields R.N. Medication/allergy information source: the patient. --18:41 Mario Shields R.N. Allergies Demerol. Latex. Robitussin. --18:38 Mario Shields R.N. Vicodin. --18:38 Mario Shields R.N. History Arrived by private vehicle. Historian: patient. Accompanied by family. Primary physician (ANGELA LARRY). 18:37 01/04/17. An injury may have occurred. Occurred at home. She has had trouble walking. 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 PAST MEDICAL HX: Tetanus status: up-to-date. Immunizations: up-to-date. Last normal menstrual period- November 2011-Due to uterine ablation. Denies current . SOCIAL HX: Never smoker. No alcohol use or drug use. No infectious disease exposure. ABUSE ASSESSMENT: No report of abuse. FALL RISK ASSESSMENT: Fall risk assessment completed. No fall risk identified. NUTRITIONAL RISK ASSESSMENT: The nutritional risk assessment revealed no deficiencies. FUNCTIONAL ASSESSMENT: Functional assessment: no impairments noted. LEARNING NEEDS ASSESSMENT: The learning needs assessment revealed no barriers. SKIN INTEGRITY ASSESSMENT: Skin integrity risk assessment completed. No skin integrity risk identified. --18:41 Mario Shields R.N. PROBLEMS: Migraine Headache. Vaginitis. UTI - Urinary Tract Infection. Gallstone(s). Back Pain. Lumbar Strain. Hypertension. Lower Extremity Pain. Endometriosis. Bronchitis. Muscle Spasm. Chronic Back Pain. Headache. Nausea. Vaginal Bleeding. Abdominal Pain. Ovarian Cyst. Depression. Sprain. Tetanus Status. Immunizations. --18:38 Mario Shields R.N. ADDITIONAL SURGERIES: Appendectomy. Cholecystectomy. Endometriosis. Fatty tumor removed from breast. Tonsillectomy. Uterine ablasion. --18:38 Mario Shields R.N. Assessment 18:37 01/04/17. --18:41 Mario Shields R.N. Interventions 18:37 01/04/17. 18:37 01/04/17. ID and allergy band on patient. To treatment room. --18:41 Mario Shields R.N. PHYSICAL ASSESSMENT 18:39 01/04/17. Ambulatory to room. GENERAL / NEURO / PSYCH: Oriented X 4. Alert. Appears in no acute distress. EXTREMITIES: No lower extremity edema. Left ankle: tenderness. Left foot: tenderness. SKIN: Skin is warm and dry. --18:39 Mario Shields R.N. NURSING PROGRESS NOTES 18:40 01/04/17. Two patient identifiers checked. Call light placed in reach. Side rails up x 2. Bed placed in lowest position. Brakes of bed on. Patient ready for evaluation- chart flagged and notification provided. --18:40 Mario Shields R.N. 18:40 01/04/17. The plan of care for this patient has been created. Cold pack applied. Extremity elevated. Reassurance given. --18:40 Mario Shields R.N. 18:53 01/04/2017 Motrin PO 800 mg given. Allergies verified and confirmed 5 rights. --18:53 Mario Shields R.N. ( post op shoe to left foot). --18:56 Ginette Ham ER Liza1. DISPOSITION / DISCHARGE 18:57 01/04/17. Condition at departure: improved. The goals identified in the patient's plan of care were met. No learning barriers present. Discharge instructions provided and reviewed with the patient and family. Reviewed warnings. Reviewed medication(s). Treatments reviewed. Patient and family verbalized understanding. Written instructions provided in Malian. The patient was discharged by the physician assistant surveyor. She was discharged home and accompanied by family. She left the Emergency Department ambulatory and via private vehicle. Family member driving. FALL RISK ASSESSMENT: Fall risk assessment completed. No fall risk identified. --18:57 Mario Shields R.N. 18:36 01/04/17. BP: 124/82. HR: 88. RR: 16. O2 saturation: 99% on room air. Temp: 97.9 F (oral). Pain level now: 02/04. --18:57 aMrio Shields R.N. 18:57 01/04/17. Departure time: 18:57 Jan 04 2017. --18:57 Mario Shields R.N. Locked/Released at 01/04/2017 18:59 by Mario Shields R.N.
--- NOTE | 2017-01-04 18:51 | ED CLINICAL REPORT ---
Clinical Report - Physicians/Mid Levels [facility] [address] [place] [address] 01/04/2017 18:04 Patient: MARYANA JEAN-BAPTISTE Time Seen: 19:11 Jan 04 2017. Arrived- By private vehicle. Historian- patient. HISTORY OF PRESENT ILLNESS Chief Complaint: (left foot pain). The injury happened yesterday. This was not a twisting injury or caused by a direct blow. Occurred at home. Patient is experiencing mild pain. Patient denies injury to the head or neck. (Pt reports pain on weight bearing to left foot, no history of trauma. No history of similar. No rash. No h/o gout/ pseudogout. Walks/ on her feet for work. No radiation of pain. Pain mildly improved with Tylenol). REVIEW OF SYSTEMS The patient complains of pain on weight bearing. No skin laceration. All systems otherwise negative, except as recorded above. PAST HISTORY See nurses notes. The patient has not had a prior injury to the same area. SOCIAL HISTORY Never smoker. No alcohol use or drug use. ADDITIONAL NOTES The nursing notes have been reviewed. PHYSICAL EXAM Vital Signs: 01/04/2017 18:36 BP: 124/82. HR: 88. RR: 16. O2 saturation: 99%. Temp: 97.9 F. Pain level now: 8/10. Appearance: Alert. No acute distress. Head: Head atraumatic. Neck: Normal inspection. CVS: Normal heart rate and rhythm. Heart sounds normal. Respiratory: No respiratory distress. Breath sounds normal. No chest wall injury. Skin: Skin intact. Skin warm. Extremities: Foot/ankle soft-tissue tenderness. Left medial ankle. No tenderness. Left anterior ankle. No tenderness or laceration. Left posterior ankle. No tenderness or swelling. Left lateral ankle. Base of the left 5th metatarsal. No tenderness or swelling. Left foot, plantar aspect. (plantar surface tenderness on palpation just distal to calcaneous). Left heel: mild tenderness. Neurovascular intact distally. (distal plantar tenderness). No erythema, swelling, laceration, puncture wound or foreign body. No deformity. No decreased plantar flexion. No signs of infection present in the feet or ankles. No ankle injury. Neuro, Vascular and Tendons: Vascular status intact. Motor intact. No tendon injury seen. Gait: Limping gait. Neuro: Oriented X 3. PROGRESS AND PROCEDURES Course of Care: Pt in the ER with signs of plantar surface tenderness, full rom at ankle. No rash. NO signs or history of injury. Pt with no ankle instability. Ambulatory. No signs of infectious origin. NO signs of laceration/ ecchymosis. NO calcaneous tenderness, no achilles tenderness. Patient is stable. Physical exam findings are improved. Symptoms better. Patient/family counseled. Disposition: Discharged. Condition: good. CLINICAL IMPRESSION Left plantar fasciitis INSTRUCTIONS Apply ice. Elevate affected areas above chest level. You may walk and bear weight as tolerated. Do not work for three days (then light duty for 3 days, primarily sitting). Prescription Medications: Motrin 800 mg tablets: take 1 tablet orally every 8 hours for 5 days, as needed for pain or swelling. Dispense fifteen (15). No refill. Understanding of the discharge instructions verbalized by patient. Follow-up with: Artemio Cuellar DPM, Podiatry, , [address], [facility] [address] Follow up. Call for the next available appointment. (Electronically signed by Poonam Quigley P.A.-C 01/04/2017 20:24)
--- NOTE | 2017-01-04 20:24 | ED DISCHARGE INSTRUCTIONS ---
Patient: MARYANA JEAN-BAPTISTE General Instructions [facility] VisitID: [id number] [address] [place], [place] [id number], F Registration Date/Time: 01/04/2017 Left plantar fasciitis INSTRUCTIONS Apply ice. Elevate affected areas above chest level. You may walk and bear weight as tolerated. Do not work for three days (then light duty for 3 days, primarily sitting). Prescription Medications: Motrin 800 mg tablets: take 1 tablet orally every 8 hours for 5 days, as needed for pain or swelling. Dispense fifteen (15). No refill. Understanding of the discharge instructions verbalized by patient. Follow-up with: Artmeio Cuellar DPM, Podiatry, , [address], [place], [address] Follow up. Call for the next available appointment. ADDITIONAL INFORMATION Plantar Fasciitis The plantar fascia is a thick fibrous layer of tissue that covers the bones on the bottom of your foot. It supports the foot bones in an arched position. can develop gradually or suddenly. It usually affects one foot at a time. Heel pain can be sharp and feel like a knife sticking in the bottom of your foot. Pain may occur after exercising, long distance jogging, stair climbing, long periods of standing, or after getting up from a seated position. Risk factors include arthritis, diabetes, obesity or recent weight gain, flat-foot, high arch, wearing high heels or loose shoes or shoes with a poor arch support. Foot pain from this condition is usually worse in the morning and improves with walking. By the end of the day there may be a dull aching. Treatment requires short-term rest and controlling inflammation. It may take up to nine months before all symptoms go away with the measures described below. Rarely, a steroid injection into the foot or surgery may be needed. Home Care If you are overweight, lose weight to promote healing. Choose supportive shoes with good arch support and shock absorbency. Replace athletic shoes when they become worn out. Dont walk or run barefoot. Shoe inserts are an important part of treatment. These will provide optimal arch support. While you can buy [id number] shoe inserts inexpensively, the best ones are those made for you by a identification officer (security operations specialist). Night splints (provided by a identification officer) keep the heel stretched out while you sleep and prevent morning pain. Avoid activities that stress the feet: jogging, prolonged standing or walking, contact sports, etc. First thing in the morning and before sports, stretch the bottom of your feet. Gently flex your ankle so the foot moves toward your knee. Icing may help control heel pain. Apply an ice pack (ice cubes in a plastic bag, wrapped in a towel) to the heel for 10-20 minutes as a preventive or after an acute flare of symptoms. You may repeat this every 1-2 hours as needed. You may use acetaminophen (Tylenol) or ibuprofen (Motrin, Advil) to control pain, unless another medicine was prescribed. [NOTE: If you have chronic liver or kidney disease or ever had a stomach ulcer or GI bleeding, talk with your doctor before using these medicines.] Follow Up with your doctor or a identification officer (security operations specialist) as advised by our staff. Call for an appointment if pain worsens or there is no relief after a few weeks of home treatment. Shoe inserts, a night splint or a special boot may be required. [NOTE: If x-rays were taken, they will be reviewed by a radiologist. You will be notified of any new findings that may affect your care.] Return Promptly or contact your physician if any of the following occurs: Foot swelling or redness with increasing pain Ibuprofen Oral tablet What is this medicine? IBUPROFEN (eye BYOO proe fen) is a non-steroidal anti-inflammatory drug (NSAID). It is used for dental pain, fever, headaches or migraines, osteoarthritis, rheumatoid arthritis, or painful monthly periods. It can also relieve minor aches and pains caused by a cold, flu, or sore throat. How should I use this medicine? Take this medicine by mouth with a glass of water. Follow the directions on the prescription label. Take this medicine with food if your stomach gets upset. Try to not lie down for at least 10 minutes after you take the medicine. Take your medicine at regular intervals. Do not take your medicine more often than directed. A special MedGuide will be given to you by the pharmacist with each prescription and refill. Be sure to read this information carefully each time. Talk to your paper supervisor regarding the use of this medicine in children. Special care may be needed. What side effects may I notice from receiving this medicine? Side effects that you should report to your doctor or health memory care director as soon as possible: allergic reactions like skin rash, itching or hives, swelling of the face, lips, or tongue black or bloody stools, blood in the urine or in vomit breathing problems changes in vision chest pain general ill feeling or flu-like symptoms nausea or vomiting redness, blistering, peeling or loosening of the skin, including inside the mouth slurred speech or weakness on one side of the body stomach pain unexplained weight gain or swelling unusually weak or tired yellowing of eyes or skin Side effects that usually do not require medical attention (report to your doctor or health memory care director if they continue or are bothersome): constipation or diarrhea dizziness gas or heartburn stomach upset What may interact with this medicine? Do not take this medicine with any of the following medications: cidofovir ketorolac methotrexate pemetrexed This medicine may also interact with the following medications: alcohol aspirin diuretics lithium other drugs for inflammation like prednisone warfarin What if I miss a dose? If you miss a dose, take it as soon as you can. If it is almost time for your next dose, take only that dose. Do not take double or extra doses. Where should I keep my medicine? Keep out of the reach of children. Store at room temperature between 15 and 30 degrees C (59 and 86 degrees F). Keep container tightly closed. Throw away any unused medicine after the expiration date. What should I tell my health care provider before I take this medicine? They need to know if you have any of these conditions: asthma cigarette smoker drink more than 3 alcohol containing drinks a day heart disease or circulation problems such as heart failure or leg edema (fluid retention) high blood pressure kidney disease liver disease stomach bleeding or ulcers an unusual or allergic reaction to ibuprofen, aspirin, other NSAIDS, other medicines, foods, dyes, or preservatives or trying to get breast-feeding What should I watch for while using this medicine? Tell your doctor or healthcare professional if your symptoms do not start to get better or if they get worse. This medicine does not prevent heart attack or stroke. In fact, this medicine may increase the chance of a heart attack or stroke. The chance may increase with longer use of this medicine and in people who have heart disease. If you take aspirin to prevent heart attack or stroke, talk with your doctor or health memory care director. Do not take other medicines that contain aspirin, ibuprofen, or naproxen with this medicine. Side effects such as stomach upset, nausea, or ulcers may be more likely to occur. Many medicines available without a prescription should not be taken with this medicine. This medicine can cause ulcers and bleeding in the stomach and intestines at any time during treatment. Ulcers and bleeding can happen without warning symptoms and can cause . To reduce your risk, do not smoke cigarettes or drink alcohol while you are taking this medicine. You may get drowsy or dizzy. Do not drive, use machinery, or do anything that needs mental alertness until you know how this medicine affects you. Do not stand or sit up quickly, especially if you are an older patient. This reduces the risk of dizzy or fainting spells. This medicine can cause you to bleed more easily. Try to avoid damage to your teeth and gums when you brush or floss your teeth. You have been given the following additional information: Plantar Fasciitis Ibuprofen Oral tablet You may walk and bear weight as tolerated. Do not work for three days (then light duty for 3 days, primarily sitting). (Electronically signed by Poonam Quigley P.A.-C 01/04/2017 20:24)
--- NOTE | 2017-01-04 20:24 | ED DISCHARGE INSTRUCTIONS ---
Patient: MARYANA JEAN-BAPTISTE General Instructions [facility] VisitID: [id number] [place], [place] [id number] 36y, F Registration Date/Time: 01/04/2017 Left plantar fasciitis INSTRUCTIONS Apply ice. Elevate affected areas above chest level. You may walk and bear weight as tolerated. Do not work for three days (then light duty for 3 days, primarily sitting). Prescription Medications: Motrin 800 mg tablets: take 1 tablet orally every 8 hours for 5 days, as needed for pain or swelling. Dispense fifteen (15). No refill. Understanding of the discharge instructions verbalized by patient. Follow-up with: Artemio Cuellar DPM, Podiatry, , [address] [facility], [place], [address] Follow up. Call for the next available appointment. ADDITIONAL INFORMATION Plantar Fasciitis The plantar fascia is a thick fibrous layer of tissue that covers the bones on the bottom of your foot. It supports the foot bones in an arched position. can develop gradually or suddenly. It usually affects one foot at a time. Heel pain can be sharp and feel like a knife sticking in the bottom of your foot. Pain may occur after exercising, long distance jogging, stair climbing, long periods of standing, or after getting up from a seated position. Risk factors include arthritis, diabetes, obesity or recent weight gain, flat-foot, high arch, wearing high heels or loose shoes or shoes with a poor arch support. Foot pain from this condition is usually worse in the morning and improves with walking. By the end of the day there may be a dull aching. Treatment requires short-term rest and controlling inflammation. It may take up to nine months before all symptoms go away with the measures described below. Rarely, a steroid injection into the foot or surgery may be needed. Home Care If you are overweight, lose weight to promote healing. Choose supportive shoes with good arch support and shock absorbency. Replace athletic shoes when they become worn out. Dont walk or run barefoot. Shoe inserts are an important part of treatment. These will provide optimal arch support. While you can buy [id number] shoe inserts inexpensively, the best ones are those made for you by a party plan selling distributor (micro computer specialist). Night splints (provided by a party plan selling distributor) keep the heel stretched out while you sleep and prevent morning pain. Avoid activities that stress the feet: jogging, prolonged standing or walking, contact sports, etc. First thing in the morning and before sports, stretch the bottom of your feet. Gently flex your ankle so the foot moves toward your knee. Icing may help control heel pain. Apply an ice pack (ice cubes in a plastic bag, wrapped in a towel) to the heel for 10-20 minutes as a preventive or after an acute flare of symptoms. You may repeat this every 1-2 hours as needed. You may use acetaminophen (Tylenol) or ibuprofen (Motrin, Advil) to control pain, unless another medicine was prescribed. [NOTE: If you have chronic liver or kidney disease or ever had a stomach ulcer or GI bleeding, talk with your doctor before using these medicines.] Follow Up with your doctor or a party plan selling distributor (micro computer specialist) as advised by our staff. Call for an appointment if pain worsens or there is no relief after a few weeks of home treatment. Shoe inserts, a night splint or a special boot may be required. [NOTE: If x-rays were taken, they will be reviewed by a radiologist. You will be notified of any new findings that may affect your care.] Return Promptly or contact your physician if any of the following occurs: Foot swelling or redness with increasing pain Ibuprofen Oral tablet What is this medicine? IBUPROFEN (eye BYOO proe fen) is a non-steroidal anti-inflammatory drug (NSAID). It is used for dental pain, fever, headaches or migraines, osteoarthritis, rheumatoid arthritis, or painful monthly periods. It can also relieve minor aches and pains caused by a cold, flu, or sore throat. How should I use this medicine? Take this medicine by mouth with a glass of water. Follow the directions on the prescription label. Take this medicine with food if your stomach gets upset. Try to not lie down for at least 10 minutes after you take the medicine. Take your medicine at regular intervals. Do not take your medicine more often than directed. A special MedGuide will be given to you by the pharmacist with each prescription and refill. Be sure to read this information carefully each time. Talk to your court officer regarding the use of this medicine in children. Special care may be needed. What side effects may I notice from receiving this medicine? Side effects that you should report to your doctor or health patient care associate as soon as possible: allergic reactions like skin rash, itching or hives, swelling of the face, lips, or tongue black or bloody stools, blood in the urine or in vomit breathing problems changes in vision chest pain general ill feeling or flu-like symptoms nausea or vomiting redness, blistering, peeling or loosening of the skin, including inside the mouth slurred speech or weakness on one side of the body stomach pain unexplained weight gain or swelling unusually weak or tired yellowing of eyes or skin Side effects that usually do not require medical attention (report to your doctor or health patient care associate if they continue or are bothersome): constipation or diarrhea dizziness gas or heartburn stomach upset What may interact with this medicine? Do not take this medicine with any of the following medications: cidofovir ketorolac methotrexate pemetrexed This medicine may also interact with the following medications: alcohol aspirin diuretics lithium other drugs for inflammation like prednisone warfarin What if I miss a dose? If you miss a dose, take it as soon as you can. If it is almost time for your next dose, take only that dose. Do not take double or extra doses. Where should I keep my medicine? Keep out of the reach of children. Store at room temperature between 15 and 30 degrees C (59 and 86 degrees F). Keep container tightly closed. Throw away any unused medicine after the expiration date. What should I tell my health care provider before I take this medicine? They need to know if you have any of these conditions: asthma cigarette smoker drink more than 3 alcohol containing drinks a day heart disease or circulation problems such as heart failure or leg edema (fluid retention) high blood pressure kidney disease liver disease stomach bleeding or ulcers an unusual or allergic reaction to ibuprofen, aspirin, other NSAIDS, other medicines, foods, dyes, or preservatives or trying to get breast-feeding What should I watch for while using this medicine? Tell your doctor or healthcare professional if your symptoms do not start to get better or if they get worse. This medicine does not prevent heart attack or stroke. In fact, this medicine may increase the chance of a heart attack or stroke. The chance may increase with longer use of this medicine and in people who have heart disease. If you take aspirin to prevent heart attack or stroke, talk with your doctor or health patient care associate. Do not take other medicines that contain aspirin, ibuprofen, or naproxen with this medicine. Side effects such as stomach upset, nausea, or ulcers may be more likely to occur. Many medicines available without a prescription should not be taken with this medicine. This medicine can cause ulcers and bleeding in the stomach and intestines at any time during treatment. Ulcers and bleeding can happen without warning symptoms and can cause . To reduce your risk, do not smoke cigarettes or drink alcohol while you are taking this medicine. You may get drowsy or dizzy. Do not drive, use machinery, or do anything that needs mental alertness until you know how this medicine affects you. Do not stand or sit up quickly, especially if you are an older patient. This reduces the risk of dizzy or fainting spells. This medicine can cause you to bleed more easily. Try to avoid damage to your teeth and gums when you brush or floss your teeth. You have been given the following additional information: Plantar Fasciitis Ibuprofen Oral tablet You may walk and bear weight as tolerated. Do not work for three days (then light duty for 3 days, primarily sitting). (Electronically signed by Poonam Quigley P.A.-C 01/04/2017 20:24)
--- NOTE | 2017-01-04 20:24 | ED MAR SUMMARY ---
..... Medication Administration Record [facility] [address] [place] [place] [address] Patient: MARYANA JEAN-BAPTISTE Visit ID: [id number] 36y, F Weight: 63.9 kg Height/Length: 64 in BMI: 24.2 ALLERGIES: Vicodin, Demerol, Latex, Robitussin Given 18:53 01/04/2017 Mario Shields R.N. Medication Administered: MOTRIN [PO], Dose: 800 mg PO. Medication Ordered: Motrin PO 800 mg (NOW).
--- NOTE | 2017-01-04 20:24 | ED MED RECONCILIATION SUMMARY ---
Patient: MARYANA JEAN-BAPTISTE Medication Reconciliation Report [facility] VisitID: [id number] [address] [place] [address] 36y, F Registration Date/Time: 01/04/2017 Weight: 63.9 kg Height/Length: 64 in. BMI: 24.2 ALLERGIES: Demerol, Latex, Robitussin, Vicodin The patient's Home Medications are listed below: THE FOLLOWING MEDICATIONS NEED TO BE RECONCILED: Aspirin Oral Topamax Oral Vitamin D Oral Vitamins/Minerals Oral The source(s) of the original Home Medication information: patient The following Medications were given to the patient in the Emergency Department: Motrin [PO] PO 800 mg, administered: 01/04/2017 6:53:00 PM The following Medications were prescribed to the patient: Motrin 800 mg tablets: take 1 tablet orally every 8 hours for 5 days, as needed for pain or swelling. Dispense fifteen (15). No refill. -- Poonam Quigley, PMargaritaAAna MC
--- NOTE | 2017-01-04 20:24 | ED MAR SUMMARY ---
..... Medication Administration Record [facility] [address] [place] [address] Patient: MARYANA JEAN-BAPTISTE Visit ID: [id number] 36y, F Weight: 63.9 kg Height/Length: 64 in BMI: 24.2 ALLERGIES: Vicodin, Demerol, Latex, Robitussin Given 18:53 01/04/2017 Mario Shields R.N. Medication Administered: MOTRIN [PO], Dose: 800 mg PO. Medication Ordered: Motrin PO 800 mg (NOW).
--- NOTE | 2017-01-04 20:24 | ED MED RECONCILIATION SUMMARY ---
Patient: MARYANA JEAN-BAPTISTE Medication Reconciliation Report [facility] VisitID: [id number] [address] [place] [address] 36y, F Registration Date/Time: 01/04/2017 Weight: 63.9 kg Height/Length: 64 in. BMI: 24.2 ALLERGIES: Demerol, Latex, Robitussin, Vicodin The patient's Home Medications are listed below: THE FOLLOWING MEDICATIONS NEED TO BE RECONCILED: Aspirin Oral Topamax Oral Vitamin D Oral Vitamins/Minerals Oral The source(s) of the original Home Medication information: patient The following Medications were given to the patient in the Emergency Department: Motrin [PO] PO 800 mg, administered: 01/04/2017 6:53:00 PM The following Medications were prescribed to the patient: Motrin 800 mg tablets: take 1 tablet orally every 8 hours for 5 days, as needed for pain or swelling. Dispense fifteen (15). No refill. -- Poonam Quigley, PMargaritaAAna [facility]
== END 2017-01-04 18:57 | disposition home or self-care (01) ==
LOC: ED SRH 18:03
DX: M72.2 Plantar fascial fibromatosis (principal); X58.XXXA Exposure to other specified factors, initial encounter; Y93.9 Activity, unspecified; Y92.009 Unspecified place in unspecified non-institutional (private) residence as the place of occurrence of the external cause; Y99.9 Unspecified external cause status; I10 Essential (primary) hypertension; Z88.5 Allergy status to narcotic agent